=== PATIENT | female | born 1985 | race Caucasian/White ===

== ENCOUNTER 2017-06-29 08:00 | Day surgery (SDC) | payer OTHER ==
[~2017-06-29] VITALS: Ht 154.9 cm; Wt 74.4 kg
[~2017-06-29 08:00] MED LIST: METFORMIN HYDRO25 GM; WELLBUTRIN XL300 MG PO
--- NOTE | 2017-06-29 09:49 | NUR ---
06/29/17 0949 [facility] DEN[facility] ANY PAIN OR OTHER PROBLEMS. SAT 100, O2 REMOVED.
--- NOTE | 2017-06-29 10:59 | NUR ---
PT UP TO BR W/RN STANDBY. PT AMBUALTES WELL AND REPORTS SUCCESSFUL VOID. PT BACK IN BED W/SCDS IN PLACE. CALL LIGHT REMAINS W/IN REACH.
[2017-06-29] MEDS ORDERED: HYCET 7.5 MG-3473 ML PO (12:07)
--- NOTE | 2017-06-29 12:14 | NUR ---
PT UP TO THE BATHROOM INDEP TOLERATED WELL.
--- NOTE | 2017-07-06 09:34 | OR ---
[facility] [address], [place] [address] Signed DATE OF PROCEDURE: 06/29/17 PREOPERATIVE DIAGNOSIS: Chronic tonsillitis. POSTOPERATIVE DIAGNOSIS: Chronic tonsillitis. PROCEDURE: Tonsillectomy. SURGEON: Roger Blair. ANESTHESIA: General Orotracheal. Angela Willams CRNA. PREOP HISTORY Steph is a 32-year-old lady with a long history of tonsil problems, chronic sore throats. Food trapping in the tonsils, tonsilliths, taken to the operating room for the above-mentioned procedures. OPERATIVE PROCEDURE AND FINDINGS After informed consent, the patient was taken to the operating room, placed in supine position where general orotracheal anesthesia was induced. The patient's procedures were verified. The patient was repositioned. McIvor mouth gag placed into suspension. Headlight exam of the pharynx s h owed markedly hypertrophic 3+ obstructive tonsillithic, very cryptic tonsils. The left tonsil was grasped with a tenaculum, retracted medially and removed from its fossa with mucosal sparing incision with coblation. The field was dried after the procedure. Same procedure on the right tonsil. Tonsils were sent to pathology. Reinspection of the tonsil fossa showed no bleeding points. The pharynx was suctioned, clear of blood and secretions. A mouth gag was removed. The patient was awakened, extubated and transported to recovery room in good condition. No complications. BLOOD LOSS: Minimal. SPECIMEN: To pathology. DRAINS: None. Roger Blair MD Electronically Signed By: ROGER BLAIR MD 07/06/17 0934 PATIENT NAME: STEPH DE PAZ Jordyn OPERATIVE REPORT DATE OF : 81 PHYSICIAN: ROGER BLAIR MD REPORT #: [id number] REPORT IS CONFIDENTIAL AND NOT TO BE RELEASED WITHOUT AUTHORIZATION [address] [address] Signed GC/Modl /[id number] Electronically Signed By: ROGER BLAIR MD 07/06/17 0934 PATIENT NAME: BALDEVSTEPH R OPERATIVE REPORT DATE OF : 81 PHYSICIAN: ROGER BLAIR MD REPORT #: [id number] REPORT IS CONFIDENTIAL AND NOT TO BE RELEASED WITHOUT AUTHORIZATION
== END 2017-06-29 12:30 | disposition home or self-care (01) ==
LOC: DS 08:00
PROVIDERS: Otolaryngology
PROC: 0CBPXZZ Excision of Tonsils, External Approach (ICD-10-PCS; principal; 2017-06-29 09:45)
DX: J35.1 Hypertrophy of tonsils (principal); E78.00 Pure hypercholesterolemia, unspecified; J45.909 Unspecified asthma, uncomplicated; F32.9 Major depressive disorder, single episode, unspecified; G47.30 Sleep apnea, unspecified; Z88.2 Allergy status to sulfonamides; Z79.02 Long term (current) use of antithrombotics/antiplatelets; Z79.899 Other long term (current) drug therapy; Z79.01 Long term (current) use of anticoagulants; Z98.890 Other specified postprocedural states
CPT/HCPCS: 00170; 84703; J0330; J1100; J2250; J2405; J2704; J3010; J7120